=== PATIENT | female | born 1950 | race Caucasian/White ===

== ENCOUNTER → 2019-07-29 | Outpatient (CLI) | payer OTHER, MEDICARE ==
[~2019-07-29] VITALS: Ht 160 cm; Wt 59.0 kg
[~2019-07-29] MED LIST: ADVIL200 M3 PO; HYDROCODON-ACE1 EAC7 PO; MELATONIN10 M3 PO; VALACYCLOVIR500 MG PO
--- NOTE | ~2019-07-29 | P ---
[facility] [place] [address] PROCEDURE REPORT Name: GAYLACARLOS Payne Room #: [facility]ENTERMarkMark#: [id number] Admission: 07/29/19 Attend Phys: Amilcar Delarosa Discharge: Date of : 46 Report #: [id number] THIS REPORT FOR: //name// CC: Amilcar Larsen MD DATE OF SERVICE: 07/29/2019 PROCEDURE PERFORMED: Colonoscopy. HISTORY OF PRESENT ILLNESS: The patient is a 68-year-old female who presents today for routine screening colonoscopy, last one was 10 years ago, reportedly negative. She denies any symptoms. No family history of colon cancer. DESCRIPTION OF PROCEDURE: The risks and benefits of the procedure were explained to the patient, those risks including but not limited to bleeding, perforation and the risk of sedation. She understood these risks and gave informed consent. Sedation was given using propofol per anesthesia. Next, a digital rectal exam was initially performed, which was normal. Next, using a standard Olympus colonoscope, the scope was placed in the patient's anus and advanced under direct vision to the cecum. The overall prep was excellent. The cecum and ileocecal valve were normal in appearance. Ascending, transverse, descending and sigmoid colon were all normal. The rectal mucosa was normal. On retroflexion, no abnormalities were noted. The scope was then withdrawn and the procedure terminated. The patient tolerated the procedure well. IMPRESSION: Normal colonoscopy. RECOMMENDATIONS: Repeat colonoscopy in 10 years. Thank you for allowing me to participate in her care. By: [id number] Amilcar Calderón MD /nt
== END | disposition home or self-care (01) ==
LOC: GI 09:18
DX: Z12.11 Encounter for screening for malignant neoplasm of colon (principal); Z98.890 Other specified postprocedural states; Z79.899 Other long term (current) drug therapy; Z88.0 Allergy status to penicillin; Z88.8 Allergy status to other drugs, medicaments and biological substances; Z79.891 Long term (current) use of opiate analgesic
CPT/HCPCS: 62110; 62900